=== PATIENT | female | born 1960 | race Caucasian/White ===

== ENCOUNTER 2023-09-11 12:28 | Emergency (ER) | payer BC, SELFPAY ==
[2023-09-11 12:33] VITALS: BP 182/97; PULSE 68; O2SAT 98
--- NOTE | 2023-09-11 12:44 | ED_ITS ---
HPI - General Adult General Chief complaint: General Medical Stated complaint: HIGH BP 220/110 FROM MD OFFICE PER EMS Time Seen by Provider: 09/11/23 15:14 Source: patient Mode of arrival: EMS Limitations: no limitations History of Present Illness HPI narrative: 62-year-old female with a history of bipolar disorder, suicide attempt, hypercholesterolemia, delusional disorder, general anxiety, COPD, PTSD, amputation of the right hand, tobacco use disorder who presents emergency department for evaluation of elevated blood pressure. Patient states she had not seen her doctor and 5 years but it made an appointment 3 months prior for a routine physical exam. When the patient was seen in the office she was noted to have a blood pressure of 220/110 and she was then brought to emergency department for evaluation. Patient states that she has been asymptomatic. She denied headache, chest pain, weakness, fatigue, nausea, vomiting. She states she has had a cold for about 1 week which she describes as a cough occasionally productive of white sputum. Patient states she is a smoker and does feel short of breath that her baseline and her shortness of breath is slightly worse than her baseline. Related Data Previous Rx's Medication Instructions Recorded lisinopril 10 mg tablet 10 mg PO DAILY 30 days #30 tabs 09/11/23 Allergies Allergy/AdvReac Type Severity Reaction Status Date / Time adhesive tape Allergy Rash Verified 09/11/23 12:45 mushroom Allergy Sneezing Verified 09/11/23 12:45 Seasonal Allergies Allergy Runny Nose Verified 09/11/23 12:45 Review of Systems 2 Review of Systems: Yes all other systems are reviewed and are negative [facility] Past Medical History [facility] Narrative: Social history: She smokes less than 1 pack of cigarettes per day for 44 years, she occasionally drinks alcohol, she denies drug use. She is and her Tan is here in the emergency department with her. Social History Social History Advance Directives: No Advance Directives Information Provided: Yes Physical Exam ED Vital Signs: Vital Signs - 24 hr 09/11/23 12:45 Temperature 97.7 F Pulse Rate 77 Respiratory Rate 18 Blood Pressure 171/88 H Pulse Oximetry 95 Oxygen Delivery Method Room Air BMI result Body Mass Index 33.4 Vital signs did reveal an elevated blood pressure of 171/88 otherwise unremarkable pain Exam: General: Awake, alert in no distress Head: Normocephalic, atraumatic EENT: PERRL, Lids normal, sclera normal, conjunctiva normal, nose normal , ears normal, throat without erythema or exudates Neck: Supple, no adenopathy, no trachea midline or C-spine tenderness Lung: breath sounds symmetric, no wheezing, rales or rhonchi Chest: symmetric movement, nontender Heart: regular rate and rhythm, normal S1, S2 no murmurs or rubs Abdomen: soft, non-tender, nondistended, normal bowel sounds Back: no vertebral tenderness, no CVAT Extremities: Right hand amputation Skin: no rashes, no lesion, normal color and warmth Neuro: Awake, alert, oriented, normal speech, cranial nerves intact, moves all extremities symmetrically Psych: Pleasant, cooperative Course Course Course Narrative: RME: 62yo F w/PMHx depression, A.fib s/p ablation, sent to ED by PCP for HTN noted in office [facility] 220/110, 180/97 w/EMS. Admits to cough x1 week, has been taking OTC cough drops. denies MAYNARD or CP BP 171/88 in triage EKG, Labs ordered Full HPI, ROS and PE to be performed by primary ED provider. Medical Decision Making Medical Decision Making MDM Narrative: 62-year-old female with a history of bipolar disorder, suicide attempt, hypercholesterolemia, delusional disorder, general anxiety, COPD, PTSD, amputation of the right hand, tobacco use disorder who presents emergency department for evaluation of elevated blood pressure. The patient had a routine follow-up with her doctor but she has not seen her doctor in 5 years. Patient had no concerning symptoms. Vital signs did reveal elevated blood pressures here in the emergency department (177/88 and 200/88) otherwise her vital signs were normal. Patient's physical examination was unremarkable. Following evaluation was ordered: CBC, CMP, troponin, EKG. 15:55 My interpretation patient's laboratory evaluation as follows: CBC was normal. CMP was normal. High sensitive troponin I was below detectable limits. Patient's EKG did reveal inverted T-waves in the anterior leads however patient is asymptomatic and I do not think that this EKG represents ischemia I did discuss the treatment of hypertension with the patient. Patient was started on lisinopril 10 mg once a day and she was given a 1 month was applied. She was advised to take her blood pressure 3 times a week for the next 2-4 weeks and follow-up with her doctor to further manage her blood pressure blood pressure medication She was given printed and verbal instructions discharged home Differential Diagnosis Differential Diagnoses: The differential diagnosis associated with the presentation includes Differential diagnosis includes was not limited to secondary hypertension, primary hypertension, stroke, heart attack, liver failure, renal failure Admission/Observation Consideration of admission/observation: Escalation of care including admission/observation considered Lab Data [facility] Lab Attestation statement: I reviewed the patient's lab results. See [facility] 09/11/23 13:43 09/11/23 13:43 Labs: Lab Results 09/11/23 Range/Units 13:43 WBC 9.0 (4.8-10.8) X10*3/uL RBC 5.43 (4.20-5.50) X10*6/uL Hgb 15.5 (12.0-16.0) g/dl Hct 47.6 H (37.0-47.0) % MCV 87.7 (80.0-98.0) fL MCH 28.5 (27.0-33.0) pg MCHC 32.6 (31.0-35.0) g/dl RDW 13.9 (11.0-16.0) % Plt Count 262 (160-400) X10*3/uL MPV 10.1 (9.4-12.3) fL Immature Gran % (Auto) 0.3 (0.0-0.4) % Neut % (Auto) 63.3 (45-73) % Lymph % (Auto) 25.8 (20-40) % Mccone % (Auto) 8.2 (2-11) % Eos % (Auto) 1.6 (0-4) % Baso % (Auto) 0.8 (0-2) % Lymph # (Auto) 2.3 (1.2-4.9) X10*3/uL Mccone # (Auto) 0.7 (0.1-1.2) X10*3/uL Eos # (Auto) 0.1 (0.0-0.4) X10*3/uL Baso # (Auto) 0.1 (0.0-0.2) X10*3/uL Abs Immat Gran (auto) 0.03 (0.00-0.03) X10*3/uL Absolute Neuts (auto) 5.7 (2.0-8.3) x10*3/uL Absolute Nucleated RBC 0.000 (0.0-0.012) X10*3/uL Nucleated RBC % (auto) 0.0 (0.0-0.2) /100WBC Sodium 141 (135-145) mmol/L Potassium 4.1 (3.3-5.1) mmol/L Chloride 108 (96-108) mmol/L Carbon Dioxide 23 (22-29) mmol/L Anion Gap 14 (12-20) BUN 9 (9-16) mg/dL Creatinine 0.66 (0.5-1.4) mg/dL Estim Creat Clear Calc 87.0 Estimated GFR > 60 Random Glucose 106 (60-115) mg/dL Calcium 9.5 (8.4-10.2) mg/dL Magnesium 2.2 (1.6-2.6) mg/dL Total Bilirubin 0.3 (0.0-1.0) mg/dL Direct Bilirubin 0.1 (0.0-0.5) mg/dL AST 14 (5-31) U/L ALT 8 (0-31) U/L Alkaline Phosphatase 66 (39-117) U/L Troponin I High Sens < 2.7 (<3.5-17.0) ng/L Total Protein 6.9 (6.5-8.0) g/dL Albumin 4.3 (3.5-5.0) g/dL Independent Interpretation I performed an independent interpretation of an: EKG Interpretation: My independent interpretation the patient's 12 EKG done at 13:30 hours is as follows: Normal sinus rhythm rate of 63, normal NH interval, QRS duration QTC interval, no ST segment elevation, no ST segment depression, inverted T-waves in 3, V1, V2 and V3. Compared to EKG dated 07/25/2017 the T-wave inversions in the to and V3 are new. Independent Historian Clinical information obtained from an independent historian. History obtained from or confirmed by: Spouse External Record Review External record reviewed: Office record Chronic Conditions Patient?s care impacted by: Other (COPD) Discharge Plan Discharge Clinical Impression: Essential hypertension Patient Disposition: Home, Self-Care Additional Instructions: High blood pressure instructions: The reason to check your blood pressure at home is to give your doctor an idea of what your blood pressure does when you are not in the doctor's office. Take your blood pressure in the mornings, Mondays , Wednesdays and Fridays and then write down these readings to discuss them with your doctor at your next visit. Do this for 2-4 weeks and then follow-up with her doctor to discuss these readings. If your doctor thinks that your blood pressures are too high then they will either increase your high blood pressure medication to maximize the dose of your 1st medicine or start you on a 2nd high blood pressure medication. If your doctor changes your blood pressure medications it will take anywhere from 2-6 week before these medications work to reduce your blood pressure. Follow-up with your doctor to discuss your blood pressure readings in the 2-4 weeks Please return to the emergency department if your symptoms get worse or if you develop any new symptoms that are concerning to you. You should try to exercise and lose weight, this will help improve your blood pressure Also you should stop smoking cigarettes since this increases your risk for heart disease, stroke and kidney failure as well. Prescriptions: New lisinopril 10 mg tablet 10 mg PO DAILY 30 Days Qty: 30 0RF
[2023-09-11 12:45] VITALS: BP 171/88; PULSE 77; RESP 18; TEMP 36.5; O2SAT 95; BMI 33.4
--- NOTE | 2023-09-11 12:47 | ECG_ITS ---
Test Reason : htn Blood Pressure : / mmHG Vent. Rate : 063 BPM Atrial Rate : 063 BPM P-R Int : 126 ms QRS Dur : 082 ms QT Int : 436 ms P-R-T Axes : 042 -34 006 degrees QTc Int : 446 ms Normal sinus rhythm Possible Left atrial enlargement Left axis deviation ST & T wave abnormality, consider anterior ischemia Abnormal ECG When compared with ECG of 25-JUL-2017 14:54, Inverted T waves have replaced nonspecific T wave abnormality in Inferior leads T wave inversion now evident in Anterior leads Referred By: Lesia Levine Electronically Signed By:CHARLETTE DAVIS MD
[2023-09-11 13:52] LABS: MANUAL DIFF FLAG NO
[2023-09-11 13:54] LABS: Basophils Absolute Auto 0.1 X10*3/uL (0.0-0.2); Basophils Percent Auto 0.8 % (0-2); Eosinophils Absolute Auto 0.1 X10*3/uL (0.0-0.4); Eosinophils Percent Auto 1.6 % (0-4); Hematocrit 47.6 % (37.0-47.0); Hemoglobin 15.5 g/dl (12.0-16.0); Imm Gran Abs Auto 0.03 X10*3/uL (0.00-0.03); Imm Gran Pct Auto 0.3 % (0.0-0.4); Lymphocytes Absolute Auto 2.3 X10*3/uL (1.2-4.9); Lymphocytes Percent Auto 25.8 % (20-40); Mean Corpuscular HGB Conc 32.6 g/dl (31.0-35.0); Mean Corpuscular Hemoglobin 28.5 pg (27.0-33.0); Mean Corpuscular Volume 87.7 fL (80.0-98.0); Mean Platelet Volume 10.1 fL (9.4-12.3); Monocytes Absolute Auto 0.7 X10*3/uL (0.1-1.2); Monocytes Percent Auto 8.2 % (2-11); Neutrophils Absolute Auto 5.7 x10*3/uL (2.0-8.3); Neutrophils Percent Auto 63.3 % (45-73); Platelet Count 262 X10*3/uL (160-400); Red Blood Count 5.43 X10*6/uL (4.20-5.50); Red Cell Distribution Width 13.9 % (11.0-16.0)
[2023-09-11 14:09] LABS: Alanine Aminotransferase 8 U/L (0-31); Albumin Level 4.3 g/dL (3.5-5.0); Alkaline Phosphatase 66 U/L (39-117); Anion Gap 14 (12-20); Aspartate Amino Transferase 14 U/L (5-31); Bilirubin Direct 0.1 mg/dL (0.0-0.5); Bilirubin Total 0.3 mg/dL (0.0-1.0); Blood Urea Nitrogen 9 mg/dL (9-16); Calcium 9.5 mg/dL (8.4-10.2); Carbon Dioxide 23 mmol/L (22-29); Chloride 108 mmol/L (96-108); Estimated Glomerular Filt Rate > 60; Glucose Random 106 mg/dL (60-115); Magnesium 2.2 mg/dL (1.6-2.6); Potassium 4.1 mmol/L (3.3-5.1); Sodium 141 mmol/L (135-145); Total Protein 6.9 g/dL (6.5-8.0)
[2023-09-11 14:20] LABS: Troponin-I High Sensitivity < 2.7 ng/L (<3.5-17.0)
[2023-09-11 15:47] VITALS: BP 200/88; PULSE 73; RESP 16; TEMP 37.2; O2SAT 97
[2023-09-11] MEDS: lisinopriL 10 MG TABLET PO (16:07)
== END 2023-09-11 16:37 | disposition home or self-care (01) ==
PROVIDERS: Physician Assistant; Emergency Provider Emergency Medicine Emergency Medical Services; PCP Internal Medicine
DX: I16.0 Hypertensive urgency (principal); J44.9 Chronic obstructive pulmonary disease, unspecified; R94.31 Abnormal electrocardiogram [ECG] [EKG]; F17.200 Nicotine dependence, unspecified, uncomplicated; Z71.6 Tobacco abuse counseling; Z79.899 Other long term (current) drug therapy
CPT/HCPCS: 36415; 80048; 80076; 83735; 84484; 85025; 93005; 99283; 99284

== ENCOUNTER → 2023-09-11 12:47 | Outpatient (BNV) | payer BC, SELFPAY | PROVIDERS: PCP Internal Medicine; Visit Provider Internal Medicine Cardiovascular Disease | DX: I10 Essential (primary) hypertension (principal) | CPT/HCPCS: 93010 ==